=== PATIENT | female | born 1980 | race Caucasian/White ===

== ENCOUNTER 2018-06-15 19:46 | Emergency (ER) | payer SELFPAY ==
[2018-06-15 19:47] VITALS: BMI 32.0
[2018-06-15 20:09] VITALS: BP 143/90
[2018-06-15] MEDS ORDERED: Sodium Chloride 0.9% 1,000 ML IV ONE (20:25)
[2018-06-15] MEDS ORDERED: Sodium Chloride 0.9% 1,000 ML ONE (20:41)
[2018-06-15 20:49] LABS: BASO % 0.4 % (0.0-2.0); EOS # 0.1 K/uL (0.0-0.7); EOS % 0.5 % (0.0-4.0); HEMOGLOBIN 14.4 g/dL (11.0-16.0); LYMPH # 1.8 K/uL (1.0-4.3); LYMPH % 18.7 % (20.0-40.0); MEAN CELL VOLUME 87.3 fL (81.0-99.0); MEAN CORPUSCULAR HEMOGLOBIN 29.7 pg (27.0-31.0); MEAN PLATELET VOLUME 8.6 fL (7.2-11.7); MONO # 0.9 K/uL (0.0-0.8); MONO % 8.8 % (0.0-10.0); NEUT # 6.9 K/uL (1.8-7.0); NEUT % 71.6 % (50.0-75.0); RBC 4.83 Mil/uL (3.80-5.20); RED CELL DISTRIBUTION WIDTH 13.4 % (11.5-14.5); WHITE BLOOD COUNT 9.7 K/uL (4.8-10.8)
--- NOTE | 2018-06-15 20:52 | C.PDOC ---
History Of Present Illness 38 year old female presents to the ED c/o viral syndrome symptoms for the past 3 weeks. Patient states she was seen at an Urgent Care in [place] 3 times but was not given a diagnoses. Patient today c/o sore throat, non productive cough and her abdomen feels distended. Patient denies fever, chills, headache, congestions, SOB, rash, recent travel, sick contacts. Time Seen by Provider: 06/15/18 20:17 Chief Complaint (Nursing): Abdominal Pain History Per: Patient History/Exam Limitations: no limitations Onset/Duration Of Symptoms: Days Current Symptoms Are (Timing): Still Present Location Of Pain/Discomfort: Diffuse Associated Symptoms: denies: Nausea, Vomiting, Diarrhea, Urinary Symptoms Recent travel outside of the [place]: No Additional History Per: Patient Abnormal Vaginal Bleeding: No Past Medical History Reviewed: Historical Data, Nursing Documentation, Vital Signs Vital Signs: Last Vital Signs Temp 98.3 F 06/15/18 19:58 Pulse 87 06/15/18 19:58 Resp 20 06/15/18 19:58 BP 143/90 06/15/18 19:58 Pulse Ox 98 06/15/18 19:58 - Medical History PMH: Asthma, Gastritis (abdominal pain) Denies: Chronic Kidney Disease Surgical History: No Surg Hx - [facility] Procedures LAPAROSCOP BIOPSY OVARY (06/24/13) LAPAROSCOP LYSIS-PERITONEAL ADHES (06/24/13) OTH LAPAROSCOP LOCAL EXCIS/DESTRUCT OVARY (06/24/13) Family History: States: Unknown Family Hx - Social History Hx Tobacco Use: No Hx Alcohol Use: No Hx Substance Use: No - Immunization History Hx Tetanus Toxoid Vaccination: No Hx Influenza Vaccination: No Hx Pneumococcal Vaccination: No Review Of Systems Constitutional: Negative for: Fever, Chills ENT: Positive for: Throat Pain. Negative for: Nose Discharge, Nose Congestion Cardiovascular: Negative for: Chest Pain Respiratory: Positive for: Cough. Negative for: Shortness of Breath, Sputum, Wheezing Gastrointestinal: Positive for: Abdominal Pain. Negative for: Nausea, Vomiting Skin: Negative for: Rash Neurological: Negative for: Weakness, Numbness Physical Exam - Physical Exam Appears: Non-toxic, No Acute Distress Skin: Normal Color, Warm, Dry Head: Atraumatic, Normacephalic Eye(s): bilateral: Normal Inspection Ear(s): Bilateral: Normal Oral Mucosa: Moist Throat: Normal, No Erythema, No Exudate Neck: Normal ROM, Supple Chest: Symmetrical Cardiovascular: Rhythm Regular Respiratory: Normal Breath Sounds, No Rales, No Rhonchi, No Wheezing Gastrointestinal/Abdominal: Soft, No Tenderness, No Guarding, No Rebound, Other (obese) Extremity: Normal ROM, No Tenderness, No Swelling Neurological/Psych: Oriented x3, Normal Speech, Normal Cognition Gait: Steady ED Course And Treatment - Laboratory Results Result Diagrams: 06/15/18 20:43 06/15/18 20:43 Lab Interpretation: Normal (ua neg.) Urine POC: Negative O2 Sat by Pulse Oximetry: 98 (On RA) Pulse Ox Interpretation: Normal - Radiology CXR: Interpreted by Me CXR Interpretation: Yes: No Acute Disease - Other Rad abd x 2 X-Ray: Interpreted by Me (+FOS, no obst/FA) Reevaluation Time: 21:47 Reassessment Condition: Improved Medical Decision Making Medical Decision Making: Plan: * Labs * IV fluids * Toradol 30 mg IVP * UA viral syndrome, chronic constipation Disposition Doctor Will See Patient In The: Office Counseled Patient/Family Regarding: Studies Performed, Diagnosis - Disposition Disposition: HOME/ ROUTINE Disposition Time: 21:47 Condition: GOOD Forms: [facility] (Maltese) - Clinical Impression Clinical Impression: Abdominal bloating - Scribe Statement The provider has reviewed the documentation as recorded by the Scribe Augustus Figueroa All medical record entries made by the Scribe were at my direction and personally dictated by me. I have reviewed the chart and agree that the record a ccurately reflects my personal performance of the history, physical exam, medical decision making, and the department course for this patient. I have also personally directed, reviewed, and agree with the discharge instructions and disposition.
[2018-06-15 20:59] LABS: ALB/GLOB RATIO 1.6 (1.0-2.1); ALBUMIN 4.3 g/dL (3.5-5.0); ALT/SGPT 32 U/L (9-52); AST/SGOT 24 U/L (14-36); BLOOD UREA NITROGEN 21 mg/dL (7-17); CALCIUM 8.8 mg/dl (8.6-10.4); GFR NON-AFRICAN AMERICAN > 60; LIPASE 110 U/L (23-300)
[2018-06-15 21:07] LABS: HCG,QUALITATIVE URINE NEGATIVE (NEGATIVE)
[2018-06-15 21:09] LABS: SQUAMOUS EPITHIAL 1 /hpf (0-5); URINE BACTERIA RARE (<OCC); URINE BILIRUBIN NEGATIVE (NEGATIVE); URINE BLOOD NEGATIVE (NEGATIVE); URINE CLARITY Clear (Clear); URINE COLOR Straw (YELLOW); URINE GLUCOSE (UA) NORMAL (Normal); URINE LEUKOCYTE ESTERASE NEG Leu/uL (Negative); URINE PROTEIN NEGATIVE (NEGATIVE); URINE UROBILINOGEN NORMAL mg/dL (0.2-1.0)
[2018-06-15] MEDS ORDERED: Magnesium Citrate Oral SOL (300 ml) PO ONE (21:55)
[2018-06-15] MEDS ORDERED: Magnesium Citrate Oral SOL (300 ml) ONE (22:02)
[2018-06-15 22:03] VITALS: PULSE 80; RESP 18; TEMP 98.2; O2SAT 99
--- NOTE | 2018-06-16 08:30 | RAD ---
Date of service: 06/15/2018 PROCEDURE: Radiographs of the chest and abdomen (obstructive series) HISTORY: abd distention COMPARISON: No prior. TECHNIQUE: AP radiograph of the chest, with upright and supine radiographs of the abdomen. FINDINGS: CHEST: Lungs: Clear. Cardiovascular: Normal size heart. No pulmonary vascular congestion. No aortic atherosclerotic calcification present Pleura: No pleural fluid. No pneumothorax. Other findings: None. ABDOMEN AND PELVIS: Bowel: Moderate stool retention present.. There also relative increased density projecting over the left colon as well as the left iliac bone is unclear if this is related to colon contents or bone. No evidence of mechanical obstruction. Free air: None. Bones: Unremarkable. Other findings: None. IMPRESSION: No pulmonary infiltrate. Moderate stool retention. No mechanical obstruction. Other findings as above.
== END 2018-06-15 22:02 | disposition home or self-care (01) ==
LOC: C.ER 19:46
DX: R14.0 Abdominal distension (gaseous) (principal)
CPT/HCPCS: 74022; 80053; 81001; 83690; 84703; 85025; 96374; 99284; J1885; J7030